=== PATIENT | female | born 1940 | race Caucasian/White ===

== ENCOUNTER → 2018-03-07 | Outpatient (CLI) | payer OTHER ==
[~2018-03-07] MED LIST: ASPIRIN EC81 M1 PO; B-12500 MCG PO; CALCIUM + VIT1 EACH PO; CIPRODEX OTIC7.5 ML OTIC; CORDRAN TP; D3 DOTS2000 UNIT PO; HYDROCHLOROTH12.5 MG PO; IBUPROFEN 800800 M1 PO; IMODIUM MULTI-1 EACH PO; KEFLEX500 MG PO; NASONEX17 GM NS; NEXIUM20 M1 PO; NIASPAN 500 MG500 M1 PO; NORCO 5-325 TA1 EACH PO; PROBIOTIC1 EACH PO; PROTOPIC OINTME30 GM TP; REFRESH5 ML OP; SIMVASTATIN20 MG PO; TOPROL XL50 MG PO; TRICOR145 MG PO
== END ==
LOC: RAD 11:50
DX: Z12.31 Encounter for screening mammogram for malignant neoplasm of breast (principal); I10 Essential (primary) hypertension; E78.5 Hyperlipidemia, unspecified; K21.9 Gastro-esophageal reflux disease without esophagitis

== ENCOUNTER → 2019-03-08 | Outpatient (CLI) | payer OTHER | LOC: RAD 11:59 | DX: Z12.31 Encounter for screening mammogram for malignant neoplasm of breast (principal) ==

== ENCOUNTER → 2020-04-07 | Outpatient (CLI) | payer OTHER | LOC: BC 09:10 | PROVIDERS: ATTEND Family Medicine | DX: Z12.31 Encounter for screening mammogram for malignant neoplasm of breast (principal) ==

== ENCOUNTER → 2021-04-09 | Outpatient (CLI) | payer OTHER | LOC: RAD 12:52 | PROVIDERS: ATTEND Family Medicine | DX: Z12.31 Encounter for screening mammogram for malignant neoplasm of breast (principal); N64.89 Other specified disorders of breast ==